=== PATIENT | female | born 2000 | race Two or more races ===

== ENCOUNTER → 2024-08-17 | Outpatient (CLI) | payer BC, SELFPAY ==
--- NOTE | 2024-08-17 09:22 | XR_ITS ---
Examination: Scoliosis survey 2, views. Technique: AP standing thoracic, AP standing lumbar spine, two views. Exam date and time: August 17, 2024 0924 hours Comparison 12/03/2020 INDICATIONS: Diagnosis scoliosis October 02, 2020 Findings: Midthoracic dextroscoliosis 9 degrees Thoracolumbar levoscoliosis 8 degrees Lumbar dextroscoliosis 6 degrees Spina bifida S1 No fracture IMPRESSION: Stable scoliosis
== END | disposition home or self-care (01) ==
PROVIDERS: PCP Physician Assistant; Referring Provider Physician Assistant; Visit Provider Physician Assistant
DX: M41.86 Other forms of scoliosis, lumbar region (principal); M41.85 Other forms of scoliosis, thoracolumbar region; M41.84 Other forms of scoliosis, thoracic region
CPT/HCPCS: 72082